=== PATIENT | female | born 1960 | race Caucasian/White ===

== ENCOUNTER 2025-01-02 20:49 | Emergency (ER) | payer MEDICARE, SELFPAY ==
--- OUTSIDE RECORDS SUMMARY | 2024-04-30 08:45 | XMS_ITS | Continuity of Care Document ---
Author Organization [facility] Address [address] [place] [address] Phone Care Team Providers Care Checker Cashier Name Role Phone Laly Noland MD Unavailable Unavailable Allergies, Adverse Reactions, Alerts Substance Reaction Status Criticality No Known Allergies Active No Inform ation Medications Medication Instructions Dosage Effective Dates (start - stop) Status Comments Maxitrol 3.5 mg/g-10,000 unit/g-0.1 % eye ointment apply to eyelids 2-3 times each day - No Longer Active Procedures Procedure Date POSTOP FOLLOW-UP VISIT Form Preparation VISUAL FIELD (Goldmann/Bleph) EYE PHOTOGRAPHY Advance Directives Directive Yes / No Effective Date File Name No Information Encounters Encounter Description Practice Location Reason(s) For Visit Diagnoses Date Provider Providers Copied on Encounter [facility], [address] [place] [address], [id number], tel:[phone] First Floor [facility] post op one week (chief complaint) Postoperative visit Ludin Ruffin. [address] [place] [address] [place] [address], [id number], [place]. tel:[phone] [facility], [address] [place] [address], [id number], tel:[phone] [facility] No Information Ludin Ruffin. [address] [place] [address] [place] [address], [id number], . tel:[phone] [facility], [address], [place], [id number], tel:[phone] First [facility] No Information Ludin Ruffin. [address] [place] [address], [id number], [place]. tel:[phone] [facility] [employer] [facility], [address], [place], [id number], tel:[phone] [facility] No Information Ludin Ruffin. [address], [id number], . tel:[phone] Family History Family Member Type Diagnosis Age At Onset No Information Payers Payer name Insurance type Covered republican ID Authoriza tion(s) No Information Social History Type Description Quantity Date Captured Comments Alcohol Use Details Unknown Caffeine Use Details Unknown Tobacco Use Status No Information Smoking Status No Information Sex Female Chief Complaint And Reason For Visit From encounter dated '04/30/2024 13:45'. post op one week (chief complaint). Description: The 63 year old patient presents for a post op oneweek bul bleph. Patient states she has irritation and itching around the eyes, especially near the incisions. Patient is using Maxitrol ointment three times a day. Reason For Referral Reason For Referral No Information History Of Present Illness Encounter Date Complaint History Of Prese nt Illness post op one week The 63 year old patient presents for a post op one week bul bleph. Patient states she has irritation and itching around the eyes, especially near the incisions. Patient is using Maxitrol ointment three times a day. Functional Status Date Functional Assessmen t No Information Instructions Date Instruction Additional Infor mation Impression/Plan Related to Posto perative visit Assessments Type Assessment Date assessment Postoperative visit impression Postoperative visit: Z48.89 Patient Care Teams Name Effective Dates (start - stop) Status Members No Information
--- OUTSIDE RECORDS SUMMARY | 2024-10-26 03:20 | XMS_ITS ---
Author Organization [facility] Address [address] [place] [id number] Care Team Providers Care [facility] Machine Name Role Phone Elisa Trinh Primary Care Provider Allergies Allergen (clinical drug ingredient) Drug/Non Drug Allergy documented on EMR Reaction Allergy Type Onset Date Status gabapentin Gabapentin ineffective Drug Allergy Act navarro Latex Latex Unknown Allergy Active metformin Metformin Unknown Drug Allergy Active REASON FOR VISIT 2 -3 week f/u, - Jess Reno LPN Medications Medication SIG (Take, Route, Frequency, Duration) Notes Start Date End Date Status Sulfamethoxazole-Trime thoprim 800-160 MG 1 tablet Orally twice a day; Duration: 7 days 10/11/2024 Active Hair Skin & Nails - as directed Orally Active Myrbetriq 50 MG 1 tablet Orally Once a day; Duration: 90 days 10/06/2024 Active CPAP mask, tubing, reservoir and associated supplies ; Duration: 90 days 10/06/2024 A ctive Carvedilol 3.125 MG 1 tablet with food Orally Twice a day; Duration: 90 days Active Senna 8.6 MG 1 tablet at bedtime as needed Orally Once a day Active Fexofenadine HCl 180 MG 1 tablet Swallow whole with water; do not take with fruit juices. Orally Once a day Active Lurasidone HCl 20 MG 1 tablet with food Oral Once a day; Duration: 30 days (latuda generic) Active traZODone HCl 100 MG 2 tab Oral daily bedtime; Duration: 90 days Active busPIRone HCl 15 MG 1 tablet Orally Twice a day; Duration: 90 days Active Omeprazole 40 MG 1 capsule 1/2 to 1 hour before morning meal Orally Once a day; Duration: 90 days Active DULoxetine HCl 60 MG 2 cap Orally Once a day; Duration: 90 days Active Famotidine 40 MG 1 tablet Oral Once a day; Duration: 90 days p.m. Active Simvastatin 20 MG 1 tablet in the evening Orally Once a day; Duration: 90 days Active C-PAP with associated supplies as directed DX: YOSEPH titrated to 14 Active Social History Tobacco Use: Social History Observation Description Date Details (start date - stop date) Former Smoker NA - NA Tobacco Control (Standard) Question Answer Notes Tobacco use: Former smoker How long has it been since you last smoked? Ivette ter than 10 years Encounters Encounter Location Date Provider Diagnosis [address] [place] [address] [address] [place] [place] [id number] 10/26/2024 Elisa Trinh Primary hypertension I10 ; Gastroesophageal reflux disease, unspecified whether esophagitis present K21.9 ; Insomnia, unspecified type G47.00 ; Overweight E66.3 ; Hyperlipidemia, unspecified hyperlipidemia type E78.5 ; OAB (overactive bladder) N32.81 ; Recurrent depression F33.9 ; Chronic pain syndrome G89.4 ; Bipolar 2 disorder F31.81 and YOSEPH on CPAP G47.33 Assessments Encounter Date Diagnosis (ICD Code) Assessment Notes Treatment Notes Treatment Clinical Notes Section Notes 10/26/2024 Primary hypertension (ICD-10 - I10) 10/26/2024 Gastroesophageal reflux disease, unspecified whether esophagitis present (ICD-10 - K21.9) 10/26/2024 Insomnia, unspecified type (ICD-10 - G47.00) 10/26/2024 Overweight (ICD-10 - E66.3) 10/26/2024 Hyperlipidemia, unspecified hyperlipidemia type (ICD-10 - E78.5) 10/26/2024 OAB (overactive bladder) (ICD-10 - N32.81) 10/26/2024 Recurrent depression (ICD-10 - F33.9) 10/26/2024 Chronic pain syndrome (ICD-10 - G89.4) 10/26/2024 Bipolar 2 disorder (ICD-10 - F31.81) 10/26/2024 YOSEPH on CPAP (ICD-10 - G47.33) Plan Of Treatment Next Appt Details Provider Name:Elisa ellis, 01/06/2025 09:40:00 AM, [address], [place], [id number], Progress Notes * Henrique DIAZB:1960 (64 yo F)Acc No.[id number]:10/26/2024 FaceToFace Patient: Eleni ESTES Provider: Michael Trinh MD Case Label: Date Of Injury: :1960 A ge:64 Y S ex:Female Date:10/26/2024 Address:[address] [place], [place] [id number] Patient's Default Facility:[address] [place] [address] Subjective: * Chief Complaints: * 1 . 2 -3 week f/u. 2. - Jess Reno LPN. * Medical History: N P June 2024, Hypertension, Hypercholesterolemia, GERD, on meds since gastric sleeve in 2014., Insomnia, OAB, has only been on Myrbetriq, Bipolar disorder, depression predominant, Anxiety, Bladder spasms, Migraines, last one in 2019., slipped disc, chronic low back. Pt reports long hx of hydrocodone with B radiculopathy since 1979 with a work accident, Insomnia, chronic abd pain after gastric sleeve, considering other surgery. Dicyclomine not helpful, d/c, Perennial allergic rhinitis. * Carpet Layer History: M enstruation: L MP hysterectomy. * OB History: G P G ravida: 2 , P [place]: 2 , A bortion Induced 0 , F ull Term 2 , A bortion Spontaneous 0 , P remature 0 , E ctopics 0 , M ultiple Births 0 , L iving 2 . * Surgical History: e ye lift 04/23/24, gastric bypass, sleeve 2014, breast reduction 2002, cholecystectomy 1985, B tubal ligation 1983, total hyst 1997, pin to left arm 1998, tonsilectomy , removal of pin left arm 1998. * Hospitalization/Major Diagno stic Procedure: i nfection (unknown origin) 2006, 6 ribs fractured 2004. * Family History: F ather: unknown hx. M other: , diagnosed with Diabetes mellitus without mention of complication, type II or unspecified type, not stated as uncontrolled, Hypertension, unspecified essential, Unspecified heart disease. 2 brother(s) . 2 daughter(s) . . * Social History: T obacco Use: T obacco Control (Standard) T obacco use: F ormer smoker, H ow long has it been since you last smoked? G reater than 10 years. A dult Health Maintenance-: T etanus t etanus within the last 5 years Y es 07/06/2024. * Medications: T aking Sulfamethoxazole-Trimethoprim 800-160 MG Tablet 1 tablet Orally twice a day , Taking CPAP mask, tubing, reservoir and associated supplies , Taking Myrbetriq 50 MG Tablet Extended Release 24 Hour 1 tablet Orally Once a day , Taking Carvedilol 3.125 MG Tablet 1 tablet with food Orally Twice a day , Taking Simvastatin 20 MG Tablet 1 tablet in the evening Orally Once a day , Taking Omeprazole 40 MG Capsule Delayed Release 1 capsule 1/2 to 1 hour before morning meal Orally Once a day , Taking Famotidine 40 MG Tablet 1 tablet Oral Once a day , Notes to Pharmacist: p.m., Taking DULoxetine HCl 60 MG Capsule Delayed Release Particles 2 cap Orally Once a day , Taking C-PAP with associated supplies as directed DX: YOSEPH , Notes to Pharmacist: titrated to 14, Taking Lurasidone HCl 20 MG Tablet 1 tablet with food Oral Once a day , Notes to Pharmacist: (latuda generic), Taking busPIRone HCl 15 MG Tablet 1 tablet Orally Twice a day , Taking traZODone HCl 100 MG Tablet 2 tab Oral daily bedtime , Taking Fexofenadine HCl 180 MG Tablet 1 tablet Swallow whole with water; do not take with fruit juices. Orally Once a day , Taking Senna 8.6 MG Tablet 1 tablet at bedtime as needed Orally Once a day , Taking Hair Skin & Nails - Tablet as directed Orally * Allergies: M etformin: Contraindication, Latex, Gabapentin: ineffective - Side Effects. Objective: * Vitals: Assessment: * Assessment: 1. P rimary hypertension - I10 (Primary) 2 . G astroesophageal reflux disease, unspecified whether esophagitis present - K21.9 3 . I nsomnia, unspecified type - G47.00 4 . O verweight - E66.3 5 . H yperlipidemia, unspecified hyperlipidemia type - E78.5 6 . O AB (overactive bladder) - N32.81? 7. R ecurrent depression - F33.9 8 . C hronic pain syndrome - G89.4 9 . B ipolar 2 disorder - F31.81 1 0. O SA on CPAP - G47.33 Plan: * Treatment: Care Plan: * Problems: * Billing Information: * Visit Code: * Procedure Codes: * Electronic signature of Yana Trinh MD on 01/02/2025 at 08:55 PM CDT Sign off status: Pending * Provider: Michael Trinh MD Date: 0 10/26/2024 Generated for Beba cadena/Robles/Kalasmitting on: 1 08:55 PM CDT
--- OUTSIDE RECORDS SUMMARY | 2025-01-02 20:55 | XMS_ITS | Patient Health Record ---
Author Organization [facility] Address [address] [place] [id number] Care Team Providers Care Relocation Coordinator Name Role Phone Elisa Trinh Primary Care Provider Allergies Allergen (clinical drug ingredient) Drug/Non Drug Allergy documented on EMR Reaction Allergy Type Onset Date Status gabapentin Gabapentin ineffective Drug Allergy Act navarro Latex Latex Unknown Allergy Active metformin Metformin Unknown Drug Allergy Active Results Component Value Reference Range Notes Urinalysis, w/ reflex to cul [place] Reviewed date:11/03/2024 08:37:27 AM Interpretation:Normal Performing Lab: Notes/Report: [email or web address] Testing performed at: [facility], [address] [place] [address], [phone], Boiler Shop Mechanic: Arturo Rojas MD [facility] Collection Date/Time: [id number] [facility] Results Received Date/Time: [id number] [facility] Reported Date/Time: [id number] Testing performed by reference lab. COLOR YELLOW YELLOW APPEARANCE CLEAR CLEAR SPECIFIC GRAVITY 1.012 1.001-1.035 PH 5.5 5.0-8.0 GLUCOSE NEGATIVE NEGATIVE BILIRUBIN NEGATIVE NEGATIVE KETONES NEGATIVE NEGATIVE OCCULT BLOOD NEGATIVE NEGATIVE PROTEIN NEGATIVE NEGATIVE NITRITE NEGATIVE NEGATIVE LEUKOCYTE ESTERASE TRACE NEGATIVE WBC 0-5 < OR = 5 /HPF RBC NONE SEEN < OR = 2 /HPF SQUAMOUS EPITHELIAL CELLS 0-5 < OR = 5 /HPF BACTERIA NONE SEEN NONE SEEN /HPF HYALINE CAST NONE SEEN NONE SEEN /LPF NOTE SEE NOTE This urine was analyzed for the presence of WBC, RBC, bacteria, casts, and other formed elements. Only those elements seen were reported. REFLEXIVE URINE CULTURE SEE NOTE CULT URE INDICATED - RESULTS TO FOLLOW CULTURE, URINE, ROUTINE SEE NOTE CULTURE, URINE, ROUTINE Micro Number: [id number] Test Status: Final Specimen Source: Urine Specimen Quality: Inadequate Result: Test not performed. An empty specimen container was received. Thyroid Panel with TSH Reviewed date:07/07/2024 03:48:14 PM Interpretation:Normal Performing Lab: Notes/Report: [facility] Testing performed at: [facility], [address] [place] [address], [phone], Boiler Shop Mechanic: Arturo Rojas MD [facility] Collection Date/Time: [id number] [facility] Results Received Date/Time: [id number] [facility] Reported Date/Time: [id number] Testing performed by reference lab. T3 UPTAKE 28 22-35 % T4 (THYROXINE), TOTAL 5.7 5.1-11.9 mcg/dL FREE T4 INDEX (T7) 1.6 1.4-3.8 TSH 1.45 0.40-4.50 mIU/L CBC, Diff, Automated Reviewed date:07/07/2024 03:48:14 PM Interpretation:Normal Performing Lab: Notes/Report: Testing performed at the [address] [place] [address] location. [place] ONLY Reviewed date:07/07/2024 03:48:49 PM Interpretation:Normal Performing Lab: Notes/Report: Lipid Panel ([place] Only) Reviewed date:07/07/2024 03:48:14 PM Interpretation:Normal Performing Lab: Notes/Report: Urinalysis, w/ reflex to cul ture, [facility] Reviewed date:10/11/2024 09:44:06 AM Interpretation:Abnormal Performing Lab: Notes/Report: Testing performed by reference lab. [facility] Reported Date/Time: [id number] [facility] Results Received Date/Time: [id number] [facility] Collection Date/Time: [id number] Testing performed at: [facility], [address] [place] [address], [phone], Boiler Shop Mechanic: Arturo Rojas MD [facility] COLOR DARK YELLOW YELLOW APPEARANCE TURBID CLEAR SPECIFIC GRAVITY 1.023 1.001-1.035 PH < OR = 5.0 5.0-8.0 GLUCOSE NEGATIVE NEGATIVE BILIRUBIN NEGATIVE NEGATIVE KETONES NEGATIVE NEGATIVE OCCULT BLOOD 2+ NEGATIVE PROTEIN 2+ NEGATIVE NITRITE POSITIVE NEGATIVE LEUKOCYTE ESTERASE 2+ NEGATIVE WBC > OR = 60 < OR = 5 /HPF RBC > OR = 60 < OR = 2 /HPF SQUAMOUS EPITHELIAL CELLS 6-10 < OR = 5 /HPF BACTERIA MANY NONE SEEN /HPF CALCIUM OXALATE CRYSTALS MODERATE NONE OR FEW /HPF HYALINE CAST 0-5 NONE SEEN /LPF NOTE SEE NOTE This urine was analyzed for the presence of WBC, RBC, bacteria, casts, and other formed elements. Only those elements seen were reported. REFLEXIVE URINE CULTURE SEE NOTE CULT URE INDICATED - RESULTS TO FOLLOW CULTURE, URINE, ROUTINE SEE NOTE CULTURE, URINE, ROUTINE Micro Number: [id number] Test Status: Final Specimen Source: Urine Specimen Quality: Adequate Result: Greater than 100,000 CFU/mL of Escherichia coli E.coli INT ASHLEY AMOX/CLAVULANATE S <=2 AMP/SULBACTAM S <=2 CEFAZOLIN NR <=1 2 CEFEPIME S <=0.12 CEFTAZIDIME S <=0.5 CEFTRIAXONE S <=0.25 CIPROFLOXACIN S <=0.06 GENTAMICIN S <=1 IMIPENEM S <=0.25 LEVOFLOXACIN S <=0.12 MEROPENEM S <=0.25 NITROFURANTOIN S <=16 PIP/TAZOBACTAM S <=4 TRIMETHOPRIM/SULFA S <=20 S = Susceptible I = Intermediate R = Resistant NS = Not susceptible SDD = Susceptible Dose Dependent * = Not Tested NR = Not Reported NN = See Therapy Comments THERAPY COMMENTS Note 1: For infections other than uncomplicated UTI caused by E. coli, K. pneumoniae or P. mirabilis: Cefazolin is resistant if ASHLEY > or = 8 mcg/mL. (Distinguishing susceptible versus intermediate for isolates with ASHLEY < or = 4 mcg/mL requires additional testing.) Note 2: For uncomplicated UTI caused by E. coli, K. pneumoniae or P. mirabilis: Cefazolin is susceptible if ASHLEY <32 mcg/mL and predicts susceptible to the oral agents cefaclor, cefdinir, cefpodoxime, cefprozil, cefuroxime, cephalexin and loracarbef. CBC, Diff, Automated Reviewed date:10/07/2024 04:38:22 PM Interpretation:Normal Performing Lab: Notes/Report: Testing performed at the [address] [place] [address] location. [facility] ONLY Reviewed date:10/11/2024 09:44:49 AM Interpretation:Normal Performing Lab: Notes/Report: Reason For Referral Reason 08/18 faxed for lisa banks pt reports chronic back pain since 1979, new patient here, no records available yet Referral form attached at back of fax Diagnosis 1 Chronic pain syndrom e (G89.4) Referral Organization [address] [place] [address] are [facility] Referring Provider First Name Elisa Referring Provider Last Name Ziggy Referring Provider [facility] nomi Referred Provider Interventional Pain Management, Referral Lines Referred Provider Specialty Pain Managem ent General Notes Elisa Trinh 07/06/2024 02:39:19 PM >[place] L[place] 07/07/2024 03:21:27 PM >referral faxed. will monitor for appointment.Ilia Lorna 07/12/2024 09:44:12 AM >Received notification from Interventional Pain Mgtmt. Patient is scheduled 08/12/2024 @ 9am. Patient has been notified by Interventional Pain Mgmt.Shayan Wendy 08/18/2024 11:20:16 AM >Faxed for Shayan crespo Wendy 08/25/2024 04:40:16 PM >notes received Referral Priority Routine Referral Appointment Date 08/12/2024 Reason 09/17 records req uested bipolar, anxiety, panic attacks For [place] [facility] Diagnosis 1 Bipolar 2 disorder ( F31.81) Diagnosis 2 Anxiety disorder wit h panic attacks (F41.9) Diagnosis 3 Recurrent depression (F33.9) Referral Organization [address] [place] [address] are [facility] Referring Provider First Name Elisa Referring Provider Last Name Ziggy Referring Provider [facility] ctice Referred Provider [facility] Referred Provider Specialty Mental Healt h General Notes Elisa Trinh 07/06/2024 02:41:59 PM >in house medication management if this insurance is accepted. If not, closest available., Christine Morillo 07/07/2024 03:26:21 PM >referral faxed. Also sent to [place] office, as most often [place] office can not receive faxes (labelled as [place] Patient), Christine Morillo 07/23/2024 03:06:18 PM > faxed for update on referral status, Christine Morillo 07/27/2024 11:30:58 AM >Per [employer], Intake completed . Note to be requested through [employer]. Patient will have to signed records release., Sia Downey 08/23/2024 04:26:18 PM >I do not see a release of information at this time, Christine Morillo 09/07/2024 03:07:29 PM >Spoke with patient. She will come in to clinic and sign a release of information for us to request the 07/19/2024 visit note from [facility]., Christine Morillo 09/17/2024 03:50:25 PM >Patient filled out release. Records requested through [employer]. Referral Priority Routine Referral Appointment Date 07/19/2024 Medications Medication SIG (Take, Route, Frequency, Duration) Notes Start Date End Date Status Myrbetriq 50 MG 1 tablet Orally Once a day; Duration: 90 days 10/06/2024 Active traZODone HCl 100 MG 2 tab Oral daily bedtime; Duration: 90 days Active Omeprazole 40 MG 1 capsule 1/2 to 1 hour before morning meal Orally Once a day; Duration: 90 days Active C-PAP with associated supplies as directed DX: YOSEPH titrated to 14 Active Famotidine 40 MG 1 tablet Oral Once a day; Duration: 90 days p.m. Active Carvedilol 3.125 MG 1 tablet with food Orally Twice a day; Duration: 90 days Active Hair Skin & Nails - as directed Orally Active Simvastatin 20 MG 1 tablet in the evening Orally Once a day; Duration: 90 days Active CPAP mask, tubing, reservoir and associated supplies ; Duration: 90 days 10/06/2024 A ctive Fexofenadine HCl 180 MG 1 tablet Swallow whole with water; do not take with fruit juices. Orally Once a day Active Senna 8.6 MG 1 tablet at bedtime as needed Orally Once a day Active busPIRone HCl 15 MG 1 tablet Orally Twice a day; Duration: 90 days Active DULoxetine HCl 60 MG 2 cap Orally Once a day; Duration: 90 days Active Lurasidone HCl 20 MG 1 tablet with food Oral Once a day; Duration: 30 days (latuda generic) Active Immunizations Vaccine Route Administration Date Status Comme nts Zostavax Unknown 11/09/2019 Administered Tdap 11-100 Yrs old-Private Stock Unknown 11/21/2014 Administered Tdap 11-100 Yrs old-Private Stock IM Intramuscular 07/06/2024 Administered pt tolerated without adverse reaction Pneumococcal 13-Private Stock Unknown 05/01/2015 Administered Pneumococcal 13-Private Stock Unknown 07/19/2019 Administered Pneumococcal (Pneumovax 23) Unknown 02/08/2013 Administered Influenza Unknown 12/15/2023 Administered Hepatitis A-Adult Unknown 11/23/2020 Administered Hepatitis A-Adult Unknown 05/30/2021 Administered Hep B adult Unknown 02/27/2015 Administered Hep B adult Unknown 04/03/2017 Administered Hep B adult Unknown 11/23/2020 Administered Hep B adult Unknown 12/25/2020 Administered Hep B adult Unknown 07/26/2021 Administered Social History Tobacco Use: Social History Observation Description Date Details (start date - stop date) Former Smoker NA - NA Diabetic Retinal Eye Exam Question Answer Notes Date of exam 10/08/2023 Tobacco Control (Standard) Question Answer Notes Tobacco use: Former smoker How long has it been since you last smoked? Grea ter than 10 years Problems Problem Type SNOMED Code ICD Code Onset Dates Problem Status W/U Status Risk Notes Problem Overweight (668115543) Overweight (E66.3) Active confirmed Problem Bipolar 2 disorder (34055885) Bipolar 2 disorder (F31.81) Active confirmed Problem Chronic pain (31368170) Other chronic pain (G89.29) Active confirmed Problem Chronic pain syndrome (540045619) Chronic pain syndrome (G89.4) Active confirmed Problem Hyperlipidaemia (87033952) Hyperlipidemia, unspecified hyperlipidemia type (E78.5) Active confirmed Problem Insomnia (304893426) Insomnia, unspecified type (G47.00) Active confirmed Problem Overactive urinary bladder (disorder) (183953066) OAB (overactive bladder) (N32.81) Active confirmed Problem Primary hypertension (97264921) Primary hypertension (I10) Active confirmed Problem Type II diabetes mellitus without complication (112967223) Type 2 diabetes mellitus without complication, without long-term current use of insulin (E11.9) Active confirmed Not reported by patient, found history in old records Problem Gastroesophageal reflux disease (247866953) Gastroesophageal reflux disease, unspecified whether esophagitis present (K21.9) Active confirmed Problem Recurrent depression (499338265) Recurrent depression (F33.9) Active confirmed Problem Obstructive sleep apnea syndrome (72201791) YOSEPH on CPAP (G47.33) Active confirmed Vital Signs Heart Rate 67 /min 11/01/2024 Temperature 96.6 degrees Fahrenheit 11/01/2024 Respiratory Rate 18 /min 11/01/2024 Height-cm 166.37 cm 11/01/2024 Oximetry 98 11/01/2024 Blood pressure diastolic 86 mm Hg 11/01/2024 Weight-kg 86.91 Kg 11/01/2024 Height 65.5 in 11/01/2024 Blood pressure systolic 124 mm Hg 11/01/2024 Weight 191.6 lbs 11/01/2024 BMI 31.4 kg/m2 11/01/2024 Encounters Encounter Location Date Provider Diagnosis [facility] [address] [place], [place] [id number] 07/06/2024 Elisa Trinh Primary hypertension I10 ; Hyperlipidemia, unspecified hyperlipidemia type E78.5 ; Gastroesophageal reflux disease, unspecified whether esophagitis present K21.9 ; OAB (overactive bladder) N32.81 ; Insomnia, unspecified type G47.00 ; Recurrent depression F33.9 ; Chronic pain syndrome G89.4 ; Bipolar 2 disorder F31.81 ; Anxiety disorder with panic attacks F41.9 ; Dietary counseling Z71.3 ; Overweight E66.3 and Encounter for administration of vaccine Z23 [facility] [address] [place], [place] [id number] 10/06/2024 Elisa Trinh Primary hypertension I10 ; Gastroesophageal reflux disease, unspecified whether esophagitis present K21.9 ; Insomnia, unspecified type G47.00 ; Overweight E66.3 ; Hyperlipidemia, unspecified hyperlipidemia type E78.5 ; OAB (overactive bladder) N32.81 ; YOSEPH on CPAP G47.33 and Acute contact dermatitis L25.9 [facility] [address] [place], [place] [id number] 10/07/2024 Elisa Trinh Gross hematuria R31. 0 and Acute cystitis with hematuria N30.01 [facility] [address] [place], [place] [id number] 11/01/2024 Elisa Trinh History of UTI Z87.4 40 ; History of hematuria Z87.448 and Bipolar 2 disorder F31.81 [facility] [address] [place], [place] [id number] 07/26/2024 Elisa Trinh Bipolar 2 disorder F31.81 [facility] [address] [place], [place] [id number] 08/23/2024 Elisa Trinh [address] [place], [place] [address] [address] [place] [address], [place] [address] 08/23/2024 Elisa Trinh [facility] [address] [place], [place] [id number] 10/06/2024 Elisa Trinh [facility] [address] [place], [place] [id number] 11/03/2024 Elisa Trinh [facility] [address] [place], [place] [id number] 11/23/2024 Elisa Trinh Bipolar 2 disorder F31.81 Assessments Encounter Date Diagnosis (ICD Code) Assessment Notes Treatment Notes Treatment Clinical Notes Section Notes 07/06/2024 Hyperlipidemia, unspecified hyperlipidemia type (ICD-10 - E78.5) 07/06/2024 Primary hypertension (ICD-10 - I10) It's normal for blood pressure to go up and down throughout the day. But if it stays up, you have high blood pressure. Another name for high blood pressure is hypertension. For diagnosis, the top number may be 130 to 140 or higher. The bottom number may be 80 to 90 or higher. Despite what a lot of people think, high blood pressure usually doesn't cause headaches or make you feel dizzy or lightheaded. It usually has no symptoms. But it does increase your risk of stroke, heart attack, and other problems. You and your doctor will talk about your risks of these problems based on your blood pressure. Your doctor will give you a goal for your blood pressure. Your goal will be based on your health and your age. Lifestyle changes, such as eating healthy and being active, are always important to help lower blood pressure. You might also take medicine to reach your blood pressure goal. Follow-up care is a kelly part of your treatment and safety. Be sure to make and go to all appointments, and call your doctor if you are having problems. It's also a good idea to know your test results and keep a list of the medicines you take. How can you care for yourself at home? Medical treatment If you stop taking your medicine, your blood pressure will go back up. You may take one or more types of medicine to lower your blood pressure. Be safe with medicines. Take your medicine exactly as prescribed. Call your doctor if you think you are having a problem with your medicine. Talk to your doctor before you start taking aspirin every day. Aspirin can help certain people lower their risk of a heart attack or stroke. But taking aspirin isn't right for everyone, because it can cause serious bleeding. See your doctor regularly. You may need to see the doctor more often at first or until your blood pressure comes down. If you are taking blood pressure medicine, talk to your doctor before you take decongestants or anti-inflammatory medicine, such as ibuprofen. Some of these medicines can raise blood pressure. Learn how to check your blood pressure at home. Lifestyle changes Stay at a healthy weight. This is especially important if you put on weight around the waist. Losing even 10 pounds can help you lower your blood pressure. If your doctor recommends it, get more exercise. Walking is a good choice. Bit by bit, increase the amount you walk every day. Try for at least 30 minutes on most days of the week. You also may want to swim, bike, or do other activities. Avoid or limit alcohol. Talk to your doctor about whether you can drink any alcohol. Try to limit how much sodium you eat to less than 2,300 milligrams (mg) a day. Your doctor may ask you to try to eat less than 1,500 mg a day. Eat plenty of fruits (such as bananas and oranges), vegetables, legumes, whole grains, and low-fat dairy products. Lower the amount of saturated fat in your diet. Saturated fat is found in animal products such as milk, cheese, and meat. Limiting these foods may help you lose weight and also lower your risk for heart disease. Do not smoke. Smoking increases your risk for heart attack and stroke. If you need help quitting, talk to your doctor about stop-smoking programs and medicines. These can increase your chances of quitting for good. When should you call for help? Call 911 anytime you think you may need emergency care. This may mean having symptoms that suggest that your blood pressure is causing a serious heart or blood vessel problem. Your blood pressure may be over 180/120. For example, call 911 if: You have symptoms of a heart attack. These may include: Chest pain or pressure, or a strange feeling in the chest. Sweating. Shortness of breath. Nausea or vomiting. Pain, pressure, or a strange feeling in the back, neck, jaw, or upper belly or in one or both shoulders or arms. Lightheadedness or sudden weakness. A fast or irregular heartbeat. You have symptoms of a stroke. These may include: Sudden numbness, tingling, weakness, or loss of movement in your face, arm, or leg, especially on only one side of your body. Sudden vision changes. Sudden trouble speaking. Sudden confusion or trouble understanding simple statements. Sudden problems with walking or balance. A sudden, severe headache that is different from past headaches. You have severe back or belly pain. Do not wait until your blood pressure comes down on its own. Get help right away. Call your doctor now or seek immediate care if: Your blood pressure is much higher than normal (such as 180/120 or higher), but you don't have symptoms. You think high blood pressure is causing symptoms, such as: Severe headache. Blurry vision. Watch closely for changes in your health, and be sure to contact your doctor if: Your blood pressure measures higher than your doctor recommends at least 2 times. That means the top number is higher or the bottom number is higher, or both. You think you may be having side effects from your blood pressure medicine. 07/26/2024 Bipolar 2 disorder (ICD-10 - F31.81) 10/07/2024 Acute cystitis with hematuria (ICD-10 - N30.01) 10/07/2024 Gross hematuria (ICD-10 - R31.0) Blood in the Urine: Care Instructions material was printed, Cystoscopy: What to Expect at Home material was printed. Blood in the urine, or hematuria, may make the urine look red, brown, or pink. There may be blood every time you urinate or just from time to time. You cannot always see blood in the urine, but it will show up in a urine test. Blood in the urine may be serious. It should always be checked by a doctor. Your doctor may recommend more tests, including an X-ray, a CT scan, or a cystoscopy (which lets a doctor look inside the urethra and bladder). Blood in the urine can be a sign of another problem. Common causes are bladder infections and kidney stones. An injury to your groin or your genital area can also cause bleeding in the urinary tract. Very hard exercise-such as running a marathon-can cause blood in the urine. Blood in the urine can also be a sign of kidney disease or cancer in the bladder or kidney. Many cases of blood in the urine are caused by a harmless condition that runs in families. This is called benign familial hematuria. It does not need any treatment. Sometimes your urine may look red or brown even though it does not contain blood. For example, not getting enough fluids (dehydration), taking certain medicines, or having a liver problem can change the color of your urine. Eating foods such as beets, rhubarb, or blackberries or foods with red food coloring can make your urine look red or pink. Follow-up care is a kelly part of your treatment and safety. Be sure to make and go to all appointments, and call your doctor if you are having problems. It's also a good idea to know your test results and keep a list of the medicines you take.Call your doctor now or seek immediate medical care if: You have symptoms of a urinary infection. For example:You have pus in your urine.You have pain in your back just below your rib cage. This is called flank pain.You have a fever, chills, or body aches.It hurts to urinate.You have groin or belly pain.You have more blood in your urine.Watch closely for changes in your health, and be sure to contact your doctor if: You have new urination problems.You do not get better as expected. Patient presented with new-onset visible blood in urine, described as orange and pink, with no prior history. No associated burning, abdominal pain, or changes in stool. Urine sample collected for laboratory confirmation. CBC reviewed and showed no anemia. Further evaluation pending lab confirmation. - Ordered urinalysis with microscopy to confirm presence of blood in urine. - Ordered comprehensive metabolic panel (CMP). - Ordered complete blood count (CBC) to assess for anemia. - Referral to Urology pending confirmation of hematuria. - Planned CT scan of the abdomen and pelvis pending insurance approval and lab confirmation. - Planned cystoscopy pending urology evaluation. 10/06/2024 Primary hypertension (ICD-10 - I10) It's normal for blood pressure to go up and down throughout the day. But if it stays up, you have high blood pressure. Another name for high blood pressure is hypertension. For diagnosis, the top number may be 130 to 140 or higher. The bottom number may be 80 to 90 or higher. Despite what a lot of people think, high blood pressure usually doesn't cause headaches or make you feel dizzy or lightheaded. It usually has no symptoms. But it does increase your risk of stroke, heart attack, and other problems. You and your doctor will talk about your risks of these problems based on your blood pressure. Your doctor will give you a goal for your blood pressure. Your goal will be based on your health and your age. Lifestyle changes, such as eating healthy and being active, are always important to help lower blood pressure. You might also take medicine to reach your blood pressure goal. Follow-up care is a kelly part of your treatment and safety. Be sure to make and go to all appointments, and call your doctor if you are having problems. It's also a good idea to know your test results and keep a list of the medicines you take. How can you care for yourself at home? Medical treatment If you stop taking your medicine, your blood pressure will go back up. You may take one or more types of medicine to lower your blood pressure. Be safe with medicines. Take your medicine exactly as prescribed. Call your doctor if you think you are having a problem with your medicine. Talk to your doctor before you start taking aspirin every day. Aspirin can help certain people lower their risk of a heart attack or stroke. But taking aspirin isn't right for everyone, because it can cause serious bleeding. See your doctor regularly. You may need to see the doctor more often at first or until your blood pressure comes down. If you are taking blood pressure medicine, talk to your doctor before you take decongestants or anti-inflammatory medicine, such as ibuprofen. Some of these medicines can raise blood pressure. Learn how to check your blood pressure at home. Lifestyle changes Stay at a healthy weight. This is especially important if you put on weight around the waist. Losing even 10 pounds can help you lower your blood pressure. If your doctor recommends it, get more exercise. Walking is a good choice. Bit by bit, increase the amount you walk every day. Try for at least 30 minutes on most days of the week. You also may want to swim, bike, or do other activities. Avoid or limit alcohol. Talk to your doctor about whether you can drink any alcohol. Try to limit how much sodium you eat to less than 2,300 milligrams (mg) a day. Your doctor may ask you to try to eat less than 1,500 mg a day. Eat plenty of fruits (such as bananas and oranges), vegetables, legumes, whole grains, and low-fat dairy products. Lower the amount of saturated fat in your diet. Saturated fat is found in animal products such as milk, cheese, and meat. Limiting these foods may help you lose weight and also lower your risk for heart disease. Do not smoke. Smoking increases your risk for heart attack and stroke. If you need help quitting, talk to your doctor about stop-smoking programs and medicines. These can increase your chances of quitting for good. When should you call for help? Call 911 anytime you think you may need emergency care. This may mean having symptoms that suggest that your blood pressure is causing a serious heart or blood vessel problem. Your blood pressure may be over 180/120. For example, call 911 if: You have symptoms of a heart attack. These may include: Chest pain or pressure, or a strange feeling in the chest. Sweating. Shortness of breath. Nausea or vomiting. Pain, pressure, or a strange feeling in the back, neck, jaw, or upper belly or in one or both shoulders or arms. Lightheadedness or sudden weakness. A fast or irregular heartbeat. You have symptoms of a stroke. These may include: Sudden numbness, tingling, weakness, or loss of movement in your face, arm, or leg, especially on only one side of your body. Sudden vision changes. Sudden trouble speaking. Sudden confusion or trouble understanding simple statements. Sudden problems with walking or balance. A sudden, severe headache that is different from past headaches. You have severe back or belly pain. Do not wait until your blood pressure comes down on its own. Get help right away. Call your doctor now or seek immediate care if: Your blood pressure is much higher than normal (such as 180/120 or higher), but you don't have symptoms. You think high blood pressure is causing symptoms, such as: Severe headache. Blurry vision. Watch closely for changes in your health, and be sure to contact your doctor if: Your blood pressure measures higher than your doctor recommends at least 2 times. That means the top number is higher or the bottom number is higher, or both. You think you may be having side effects from your blood pressure medicine. 10/06/2024 Gastroesophageal reflux disease, unspecified whether esophagitis present (ICD-10 - K21.9) Change your eating habits. -It's best to eat several small meals instead of two or three large meals. -After you eat, wait 2 to 3 hours before you lie down. -Chocolate, mint, and alcohol can make GERD worse. -Spicy foods, foods that have a lot of acid (like tomatoes and oranges), and coffee can make GERD symptoms worse in some people. If your symptoms are worse after you eat a certain food, you may want to stop eating that food to see if your symptoms get better. -Do not smoke or chew tobacco. Smoking can make GERD worse. If you need help quitting, talk to your doctor about stop-smoking programs and medicines. These can increase your chances of quitting for good. -If you have GERD symptoms at night, raise the head of your bed 6 to 8 inches by putting the frame on blocks or placing a foam wedge under the head of your mattress. (Adding extra pillows does not work.) -Do not wear tight clothing around your middle. -Lose weight if you need to. Losing just 5 to 10 pounds can help. 11/01/2024 History of UTI (ICD-10 - Z87.440) 11/01/2024 History of hematuria (ICD-10 - Z87.448) 11/23/2024 Bipolar 2 disorder (ICD-10 - F31.81) 07/06/2024 Gastroesophageal reflux disease, unspecified whether esophagitis present (ICD-10 - K21.9) Change your eating habits. -It's best to eat several small meals instead of two or three large meals. -After you eat, wait 2 to 3 hours before you lie down. -Chocolate, mint, and alcohol can make GERD worse. -Spicy foods, foods that have a lot of acid (like tomatoes and oranges), and coffee can make GERD symptoms worse in some people. If your symptoms are worse after you eat a certain food, you may want to stop eating that food to see if your symptoms get better. -Do not smoke or chew tobacco. Smoking can make GERD worse. If you need help quitting, talk to your doctor about stop-smoking programs and medicines. These can increase your chances of quitting for good. -If you have GERD symptoms at night, raise the head of your bed 6 to 8 inches by putting the frame on blocks or placing a foam wedge under the head of your mattress. (Adding extra pillows does not work.) -Do not wear tight clothing around your middle. -Lose weight if you need to. Losing just 5 to 10 pounds can help. 10/06/2024 Insomnia, unspecified type (ICD-10 - G47.00) What to avoid *Do not have drinks with caffeine, such as coffee or black tea, for 8 hours before bed. *Do not smoke or use other types of tobacco near bedtime. Nicotine is a stimulant and can keep you awake. *Avoid drinking alcohol late in the evening, because it can cause you to wake in the middle of the night. *Do not eat a big meal close to bedtime. If you are hungry, eat a light snack. *Do not drink a lot of water close to bedtime, because the need to urinate may wake you up during the night. *Do not read or watch TV in bed. Use the bed only for sleeping and sexual activity. What to try *Go to bed at the same time every night, and wake up at the same time every morning. Do not take naps during the day. *Keep your bedroom quiet, dark, and cool. *Sleep on a comfortable pillow and mattress. *If watching the clock makes you anxious, turn it facing away from you so you cannot see the time. *If you worry when you lie down, start a worry book. Well before bedtime, write down your worries, and then set the book and your concerns aside. *Try meditation or other relaxation techniques before you go to bed. *If you cannot fall asleep, get up and go to another room until you feel sleepy. Do something relaxing. Repeat your bedtime routine before you go to bed again. *Make your house quiet and calm about an hour before bedtime. Turn down the lights, turn off the TV, log off the computer, and turn down the volume on music. This can help you relax after a busy day. When should you call for help? Watch closely for changes in your health, and be sure to contact your doctor if: *Your efforts to improve your sleep do not work. *Your insomnia gets worse. *You have been feeling down, depressed, or hopeless or have lost interest in things that you usually enjoy. 11/01/2024 Bipolar 2 disorder (ICD-10 - F31.81) If you have a large task to do, break it up into smaller steps you can handle, and just do what you can. You may want to put off important decisions until your depression has lifted. If you have plans that will have a major impact on your life, such as marriage, divorce, or a job change, try to wait a bit. Talk it over with friends and loved ones who can help you look at the overall picture first. Reaching out to people for help is important. Do not isolate yourself. Let your family and friends help you. Find someone you can trust and confide in, and talk to that person. Be patient, and be kind to yourself. Remember that depression is not your fault and is not something you can overcome with willpower alone. Treatment is important for depression, just like for any other illness. Feeling better takes time, and your mood will improve little by little. Stay active Stay busy and get outside. Take a walk, or try some other light exercise. Talk with your doctor about an exercise program. Exercise can help with mild depression. Go to a movie or concert. Take part in a hoahaoism activity or other social gathering. Go to a ball game. Ask a friend to have dinner with you. Take care of yourself Eat a balanced diet with plenty of fresh fruits and vegetables, whole grains, and lean protein. If you have lost your appetite, eat small snacks rather than large meals. Avoid using illegal drugs or marijuana and drinking alcohol. Do not take medicines that have not been prescribed for you. They may interfere with medicines you may be taking for depression, or they may make your depression worse. Take your medicines exactly as they are prescribed. You may start to feel better within 1 to 3 weeks of taking antidepressant medicine. But it can take as many as 6 to 8 weeks to see more improvement. If you have questions or concerns about your medicines, or if you do not notice any improvement by 3 weeks, talk to your doctor. Continue to take your medicine after your symptoms improve. Taking your medicine for at least 6 months after you feel better can help keep you from getting depressed again. If this isn't the first time you have been depressed, your doctor may recommend you to take medicine even longer. If you have any side effects from your medicine, tell your doctor. Many side effects are mild and will go away on their own after you have been taking the medicine for a few weeks. Some may last longer. Talk to your doctor if side effects are bothering you too much. You might be able to try a different medicine. Continue counseling. It may help prevent depression from returning, especially if you've had multiple episodes of depression. Talk with your counselor if you are having a hard time attending your sessions or you think the sessions aren't working. Don't just stop going. Get enough sleep. Talk to your doctor if you are having problems sleeping. Avoid sleeping pills unless they are prescribed by the doctor treating your depression. Sleeping pills may make you groggy during the day, and they may interact with other medicine you are taking. If you have any other illnesses, such as diabetes, heart disease, or high blood pressure, make sure to continue with your treatment. Tell your doctor about all of the medicines you take, including those with or without a prescription. If you or someone you know talks about suicide, self-harm, or feeling hopeless, get help right away. Call the National Suicide Prevention Lifeline at 1-800-273-talk ( ) or text HOME to 640477 to access the Crisis Text Line. Consider saving these numbers in your phone. Call 924 anytime you think you may need emergency care. For example, call if: You feel like hurting yourself or someone else. Someone you know has depression and is about to attempt or is attempting suicide. Call your doctor now or seek immediate medical care if: You feel like hurting yourself or someone else. Someone you know has depression and is about to attempt or is attempting suicide. Call your doctor now or seek immediate medical care if: You hear voices. Someone you know has depression and: Starts to give away his or her possessions. Uses illegal drugs or drinks alcohol heavily. Talks or writes about , including writing suicide notes or talking about guns, knives, or pills. Starts to spend a lot of time alone. Acts very aggressively or suddenly appears calm. Watch closely for changes in your health, and be sure to contact your doctor if: You do not get better as expected. 07/06/2024 OAB (overactive bladder) (ICD-10 - N32.81) 10/06/2024 Overweight (ICD-10 - E66.3) 10/06/2024 Hyperlipidemia, unspecified hyperlipidemia type (ICD-10 - E78.5) Eat a variety of foods every day. Good choices include fruits, vegetables, whole grains (like oatmeal), dried beans and peas, nuts and seeds, soy products (like tofu), and fat-free or low-fat dairy products. *Replace butter, margarine, and hydrogenated or partially hydrogenated oils with olive and canola oils. (Canola oil margarine without trans fat is fine.) *Replace red meat with fish, poultry, and soy protein (like tofu). *Limit processed and packaged foods like chips, crackers, and cookies. *Bake, broil, or steam foods. Don't myers them. *Be physically active. Get at least 30 minutes of exercise on most days of the week. Walking is a good choice. You also may want to do other activities, such as running, swimming, cycling, or playing tennis or team sports. *Stay at a healthy weight or lose weight by making the changes in eating and physical activity listed above. Losing just a small amount of weight, even 5 to 10 pounds, can reduce your risk for having a heart attack or stroke. *Do not smoke. 07/06/2024 Insomnia, unspecified type (ICD-10 - G47.00) What to avoid *Do not have drinks with caffeine, such as coffee or black tea, for 8 hours before bed. *Do not smoke or use other types of tobacco near bedtime. Nicotine is a stimulant and can keep you awake. *Avoid drinking alcohol late in the evening, because it can cause you to wake in the middle of the night. *Do not eat a big meal close to bedtime. If you are hungry, eat a light snack. *Do not drink a lot of water close to bedtime, because the need to urinate may wake you up during the night. *Do not read or watch TV in bed. Use the bed only for sleeping and sexual activity. What to try *Go to bed at the same time every night, and wake up at the same time every morning. Do not take naps during the day. *Keep your bedroom quiet, dark, and cool. *Sleep on a comfortable pillow and mattress. *If watching the clock makes you anxious, turn it facing away from you so you cannot see the time. *If you worry when you lie down, start a worry book. Well before bedtime, write down your worries, and then set the book and your concerns aside. *Try meditation or other relaxation techniques before you go to bed. *If you cannot fall asleep, get up and go to another room until you feel sleepy. Do something relaxing. Repeat your bedtime routine before you go to bed again. *Make your house quiet and calm about an hour before bedtime. Turn down the lights, turn off the TV, log off the computer, and turn down the volume on music. This can help you relax after a busy day. When should you call for help? Watch closely for changes in your health, and be sure to contact your doctor if: *Your efforts to improve your sleep do not work. *Your insomnia gets worse. *You have been feeling down, depressed, or hopeless or have lost interest in things that you usually enjoy. 10/06/2024 OAB (overactive bladder) (ICD-10 - N32.81) History of overactive bladder with urgency, cramping, and low urine volume. Symptoms worsened after stopping overactive bladder medication 3-4 weeks ago. Patient previously responded well to 50 mg dose. - Discussed resuming overactive bladder medication at previous dose. 07/06/2024 Recurrent depression (ICD-10 - F33.9) 10/06/2024 YOSEPH on CPAP (ICD-10 - G47.33) 07/06/2024 Chronic pain syndrome (ICD-10 - G89.4) Declines trial of gabapentin or tramadol. Wants to get hydrocodone from pain management clinic 07/06/2024 Bipolar 2 disorder (ICD-10 - F31.81) 10/06/2024 Acute contact dermatitis (ICD-10 - L25.9) Dermatitis: Care Instructions material was printed, Poison [place], [place], and [place]: Care Instructions material was printed 07/06/2024 Anxiety disorder with panic attacks (ICD-10 - F41.9) 07/06/2024 Dietary counseling (ICD-10 - Z71.3) The following information is provided to help patients understand the role BMI, nutrition, and physical activity play in a patient's overall health. Please review the information available in these links. ADULT BMI: https://www.cdc.go v/healthyweight/as sessing/bmi/adult_ bmi/english_bmi_ca lculator/bmi_calcu lator.html DIETARY GUIDELINES: https://www.dietar yguidelines.gov/si francesca/default/files/ 2020-05/Dietary_Gu idelines_for_Ameri cans-... PHYSICAL ACTIVITIES GUIDELINES: https://www.cdc.go v/healthyweight/ph ysical_activity/in dex.html 07/06/2024 Overweight (ICD-10 - E66.3) 07/06/2024 Encounter for administration of vaccine (ICD-10 - Z23) 07/06/2024 Other Please move wit h your normal chores and activities or exercise vigorously for at least 150 minutes a week. This can be walking, biking, swimming or other sports activities that you enjoy. Also add at least 2 exercise sessions a week for strength and balance training such as weight lifting, resistance bands, martial arts, yoga, deric chi or other exercise to improve your overall health and reduce your future risk of injury. Plan Of Treatment Next Appt Details Provider Name:Elisa ellis, 01/06/2025 09:40:00 AM, [address], [place], [id number], Insurance Providers Payer Name Payer Address Payer Phone Subscriber Number Group Number Insured Name Patient Relationship to Insured Coverage Start Date Coverage End Date [facility] [address] [address] [place], [place] [id number] Eleni Mansfield Self - patient is the insured Medicaid [address] [place], [place] [id number] Eleni Mansfield Self - patient is the insured Medical (General) History Medical History History ICD Code [employer] June 2024 Hypertension hypercholesterolemia GERD, on meds since gastric sleeve in . insomnia OAB, has only been on Myrbetriq bipolar disorder, depression predominant, established with [facility] July 2024 anxiety bladder spasms migraines, last one in 2018. slipped disc, chronic low ba ck. Pt reports long hx of hydrocodone with B radiculopathy since 1979 with a work accident insomnia chronic abd pain after gastr ic sleeve, considering other surgery. Dicyclomine not helpful, d/c perennial allergic rhinitis Surgical History Surgery Date(Month/Year) eye lift 04/23/24 gastric bypass, sleeve 2014 breast reduction 2002 cholecystectomy 1985 B tubal ligation 1983 total hyst 1997 pin to left arm 1998 tonsilectomy removal of pin left arm 1998 Hospitalization History Reason Date(Month/Year) 6 ribs fractured 2004 infection (unknown origin) 2006
--- OUTSIDE RECORDS SUMMARY | 2025-01-02 20:55 | XMS_ITS | Patient Health Record ---
Author Organization [facility] Address [address] [place] [address] Care Team Providers Care Customer Development Manager Name Role Phone Rene Mauro Unavailable [phone] Allergies Allergen (clinical drug ingredient) Drug/Non Drug Allergy documented on EMR Reaction Allergy Type Onset Date Status metformin metFORMIN Unknown Drug Allergy Active Results Component Value Reference Range Flag Notes Urine Drug Screen (cup read) - 48428 Reviewed date:12/09/2024 01:50:09 PM Interpretation: Performing Lab: Notes/Report: OPI + Urine Confirmation Panel (in strument) - [id number] Reviewed date:12/13/2024 10:53:56 PM Interpretation: Performing Lab: Notes/Report: 6-Acetylmorphine 0 <6 ng/mL N This francesca t was developed and its performance characteristics determined by [facility]. It has not been cleared or approved by the U.S. Food and Drug Administration. 7-Aminoclonazepam 0 <60 ng/mL N This te st was developed and its performance characteristics determined by [facility]. It has not been cleared or approved by the U.S. Food and Drug Administration. Alprazolam 0 <60 ng/mL N This test was developed and its performance characteristics determined by [facility]. It has not been cleared or approved by the U.S. Food and Drug Administration. Amphetamine 0 <75 ng/mL N This test was developed and its performance characteristics determined by [facility]. It has not been cleared or approved by the U.S. Food and Drug Administration. aOH-Alprazolam 0 <60 ng/mL N This test was developed and its performance characteristics determined by [facility]. It has not been cleared or approved by the U.S. Food and Drug Administration. Buprenorphine 0.0 <7.5 ng/mL N This test w as developed and its performance characteristics determined by [facility]. It has not been cleared or approved by the U.S. Food and Drug Administration. Norbuprenorphine 0.0 <37.5 ng/mL N This te st was developed and its performance characteristics determined by [facility]. It has not been cleared or approved by the U.S. Food and Drug Administration. Carisoprodol 0 <75 ng/mL N This test wa s developed and its performance characteristics determined by [facility]. It has not been cleared or approved by the U.S. Food and Drug Administration. Codeine 0 <75 ng/mL N This test was developed and its performance characteristics determined by [facility]. It has not been cleared or approved by the U.S. Food and Drug Administration. EDDP 0 <75 ng/mL N This test was developed and its performance characteristics determined by [facility]. It has not been cleared or approved by the U.S. Food and Drug Administration. Fentanyl 0 <6 ng/mL N This test was developed and its performance characteristics determined by [facility]. It has not been cleared or approved by the U.S. Food and Drug Administration. Hydrocodone 700 <75 ng/mL H This test was developed and its performance characteristics determined by [facility]. It has not been cleared or approved by the U.S. Food and Drug Administration. Hydromorphone 0 <75 ng/mL N This test w as developed and its performance characteristics determined by [facility]. It has not been cleared or approved by the U.S. Food and Drug Administration. Lorazepam 0 <60 ng/mL N This test was developed and its performance characteristics determined by [facility]. It has not been cleared or approved by the U.S. Food and Drug Administration. MDMA 0 <75 ng/mL N This test was developed and its performance characteristics determined by [facility]. It has not been cleared or approved by the U.S. Food and Drug Administration. Meperidine 0.0 <37.5 ng/mL N This test was developed and its performance characteristics determined by [facility]. It has not been cleared or approved by the U.S. Food and Drug Administration. Meprobamate 0 <75 ng/mL N This test was developed and its performance characteristics determined by [facility]. It has not been cleared or approved by the U.S. Food and Drug Administration. Methamphetamine 6 <75 ng/mL N This test was developed and its performance characteristics determined by [facility]. It has not been cleared or approved by the U.S. Food and Drug Administration. Methadone 0 <75 ng/mL N This test was developed and its performance characteristics determined by [facility]. It has not been cleared or approved by the U.S. Food and Drug Administration. Morphine 0 <75 ng/mL N This test was developed and its performance characteristics determined by [facility]. It has not been cleared or approved by the U.S. Food and Drug Administration. Nordiazepam 0 <60 ng/mL N This test was developed and its performance characteristics determined by [facility]. It has not been cleared or approved by the U.S. Food and Drug Administration. Norfentanyl 0 <6 ng/mL N This test was developed and its performance characteristics determined by [facility]. It has not been cleared or approved by the U.S. Food and Drug Administration. Normeperidine 0.0 <37.5 ng/mL N This test was developed and its performance characteristics determined by [facility]. It has not been cleared or approved by the U.S. Food and Drug Administration. O-desmethyltramadol 0 <75 ng/mL N This test was developed and its performance characteristics determined by [facility]. It has not been cleared or approved by the U.S. Food and Drug Administration. Oxazepam 0 <60 ng/mL N This test was developed and its performance characteristics determined by [facility]. It has not been cleared or approved by the U.S. Food and Drug Administration. Oxycodone 0.0 <37.5 ng/mL N This test was developed and its performance characteristics determined by [facility]. It has not been cleared or approved by the U.S. Food and Drug Administration. Oxymorphone 0 <75 ng/mL N This test was developed and its performance characteristics determined by [facility]. It has not been cleared or approved by the U.S. Food and Drug Administration. Phencyclidine 0.0 <7.5 ng/mL N This test w as developed and its performance characteristics determined by [facility]. It has not been cleared or approved by the U.S. Food and Drug Administration. Tapentadol 17.4 <37.5 ng/mL N This test was developed and its performance characteristics determined by [facility]. It has not been cleared or approved by the U.S. Food and Drug Administration. Temazepam 0 <60 ng/mL N This test was developed and its performance characteristics determined by [facility]. It has not been cleared or approved by the U.S. Food and Drug Administration. Tramadol 38 <75 ng/mL N This test was developed and its performance characteristics determined by [facility]. It has not been cleared or approved by the U.S. Food and Drug Administration. Norhydrocodone 616 <75 ng/mL H This test was developed and its performance characteristics determined by [facility]. It has not been cleared or approved by the U.S. Food and Drug Administration. Noroxycodone 0 <38 ng/mL N This test wa s developed and its performance characteristics determined by [facility]. It has not been cleared or approved by the U.S. Food and Drug Administration. Pregabalin 0 <225 ng/mL N This test was developed and its performance characteristics determined by [facility]. It has not been cleared or approved by the U.S. Food and Drug Administration. Gabapentin 0 <225 ng/mL N This test was developed and its performance characteristics determined by [facility]. It has not been cleared or approved by the U.S. Food and Drug Administration. Benzoylecgonine 0.0 <37.5 ng/mL N This francesca t was developed and its performance characteristics determined by [facility]. It has not been cleared or approved by the U.S. Food and Drug Administration. 4-Hydroxy Xylazine 0 <25 ng/mL N This t est was developed and its performance characteristics determined by [facility]. It has not been cleared or approved by the U.S. Food and Drug Administration. Tox Results Reviewed date:10/20/2024 12:58:58 PM Interpretation: Performing Lab: Notes/Report: Urine Drug Screen (cup read) - [id number] Reviewed date:08/12/2024 09:58:13 AM Interpretation:all negative Performing Lab: Notes/Report: all negative Urine Confirmation Panel (in strument) - [id number] Reviewed date:08/16/2024 02:37:08 PM Interpretation: Performing Lab: Notes/Report: 6-Acetylmorphine 0 <6 ng/mL N This francesca t was developed and its performance characteristics determined by [facility]. It has not been cleared or approved by the U.S. Food and Drug Administration. 7-Aminoclonazepam 0 <60 ng/mL N This te st was developed and its performance characteristics determined by [facility]. It has not been cleared or approved by the U.S. Food and Drug Administration. Alprazolam 0 <60 ng/mL N This test was developed and its performance characteristics determined by [facility]. It has not been cleared or approved by the U.S. Food and Drug Administration. Amphetamine 0 <75 ng/mL N This test was developed and its performance characteristics determined by [facility]. It has not been cleared or approved by the U.S. Food and Drug Administration. aOH-Alprazolam 0 <60 ng/mL N This test was developed and its performance characteristics determined by [facility]. It has not been cleared or approved by the U.S. Food and Drug Administration. Buprenorphine 0.0 <7.5 ng/mL N This test w as developed and its performance characteristics determined by [facility]. It has not been cleared or approved by the U.S. Food and Drug Administration. Norbuprenorphine 0.0 <37.5 ng/mL N This te st was developed and its performance characteristics determined by [facility]. It has not been cleared or approved by the U.S. Food and Drug Administration. Carisoprodol 0 <75 ng/mL N This test wa s developed and its performance characteristics determined by [facility]. It has not been cleared or approved by the U.S. Food and Drug Administration. Codeine 0 <75 ng/mL N This test was developed and its performance characteristics determined by [facility]. It has not been cleared or approved by the U.S. Food and Drug Administration. EDDP 0 <75 ng/mL N This test was developed and its performance characteristics determined by [facility]. It has not been cleared or approved by the U.S. Food and Drug Administration. Fentanyl 0 <6 ng/mL N This test was developed and its performance characteristics determined by [facility]. It has not been cleared or approved by the U.S. Food and Drug Administration. Hydrocodone 45 <75 ng/mL N This test was developed and its performance characteristics determined by [facility]. It has not been cleared or approved by the U.S. Food and Drug Administration. Hydromorphone 0 <75 ng/mL N This test w as developed and its performance characteristics determined by [facility]. It has not been cleared or approved by the U.S. Food and Drug Administration. Lorazepam 0 <60 ng/mL N This test was developed and its performance characteristics determined by [facility]. It has not been cleared or approved by the U.S. Food and Drug Administration. MDMA 0 <75 ng/mL N This test was developed and its performance characteristics determined by [facility]. It has not been cleared or approved by the U.S. Food and Drug Administration. Meperidine 0.0 <37.5 ng/mL N This test was developed and its performance characteristics determined by [facility]. It has not been cleared or approved by the U.S. Food and Drug Administration. Meprobamate 0 <75 ng/mL N This test was developed and its performance characteristics determined by [facility]. It has not been cleared or approved by the U.S. Food and Drug Administration. Methamphetamine 0 <75 ng/mL N This test was developed and its performance characteristics determined by [facility]. It has not been cleared or approved by the U.S. Food and Drug Administration. Methadone 0 <75 ng/mL N This test was developed and its performance characteristics determined by [facility]. It has not been cleared or approved by the U.S. Food and Drug Administration. Morphine 0 <75 ng/mL N This test was developed and its performance characteristics determined by [facility]. It has not been cleared or approved by the U.S. Food and Drug Administration. Nordiazepam 0 <60 ng/mL N This test was developed and its performance characteristics determined by [facility]. It has not been cleared or approved by the U.S. Food and Drug Administration. Norfentanyl 0 <6 ng/mL N This test was developed and its performance characteristics determined by [facility]. It has not been cleared or approved by the U.S. Food and Drug Administration. Normeperidine 0.0 <37.5 ng/mL N This test was developed and its performance characteristics determined by [facility]. It has not been cleared or approved by the U.S. Food and Drug Administration. O-desmethyltramadol 0 <75 ng/mL N This test was developed and its performance characteristics determined by [facility]. It has not been cleared or approved by the U.S. Food and Drug Administration. Oxazepam 0 <60 ng/mL N This test was developed and its performance characteristics determined by [facility]. It has not been cleared or approved by the U.S. Food and Drug Administration. Oxycodone 0.0 <37.5 ng/mL N This test was developed and its performance characteristics determined by [facility]. It has not been cleared or approved by the U.S. Food and Drug Administration. Oxymorphone 0 <75 ng/mL N This test was developed and its performance characteristics determined by [facility]. It has not been cleared or approved by the U.S. Food and Drug Administration. Phencyclidine 0.0 <7.5 ng/mL N This test w as developed and its performance characteristics determined by [facility]. It has not been cleared or approved by the U.S. Food and Drug Administration. Tapentadol 0.0 <37.5 ng/mL N This test was developed and its performance characteristics determined by [facility]. It has not been cleared or approved by the U.S. Food and Drug Administration. Temazepam 0 <60 ng/mL N This test was developed and its performance characteristics determined by [facility]. It has not been cleared or approved by the U.S. Food and Drug Administration. Tramadol 0 <75 ng/mL N This test was developed and its performance characteristics determined by [facility]. It has not been cleared or approved by the U.S. Food and Drug Administration. Norhydrocodone 0 <75 ng/mL N This test was developed and its performance characteristics determined by [facility]. It has not been cleared or approved by the U.S. Food and Drug Administration. Noroxycodone 0 <38 ng/mL N This test wa s developed and its performance characteristics determined by [facility]. It has not been cleared or approved by the U.S. Food and Drug Administration. Pregabalin 0 <225 ng/mL N This test was developed and its performance characteristics determined by [facility]. It has not been cleared or approved by the U.S. Food and Drug Administration. Gabapentin 0 <225 ng/mL N This test was developed and its performance characteristics determined by [facility]. It has not been cleared or approved by the U.S. Food and Drug Administration. Benzoylecgonine 0.0 <37.5 ng/mL N This francesca t was developed and its performance characteristics determined by [facility]. It has not been cleared or approved by the U.S. Food and Drug Administration. 4-Hydroxy Xylazine 0 <25 ng/mL N This t est was developed and its performance characteristics determined by [facility]. It has not been cleared or approved by the U.S. Food and Drug Administration. Tox Results Reviewed date:12/13/2024 10:53:56 PM Interpretation: Performing Lab: Notes/Report: Tox Results Reviewed date:08/16/2024 02:40:51 PM Interpretation: Performing Lab: Notes/Report: Urine Drug Screen (cup read) - [id number] Reviewed date:10/07/2024 03:14:35 PM Interpretation: Performing Lab: Notes/Report: OPI + Urine Confirmation Panel (in strument) - [id number] Reviewed date:10/20/2024 12:58:58 PM Interpretation: Performing Lab: Notes/Report: 6-Acetylmorphine 0 <6 ng/mL N This francesca t was developed and its performance characteristics determined by [facility]. It has not been cleared or approved by the U.S. Food and Drug Administration. 7-Aminoclonazepam 0 <60 ng/mL N This te st was developed and its performance characteristics determined by [facility]. It has not been cleared or approved by the U.S. Food and Drug Administration. Alprazolam 0 <60 ng/mL N This test was developed and its performance characteristics determined by [facility]. It has not been cleared or approved by the U.S. Food and Drug Administration. Amphetamine 0 <75 ng/mL N This test was developed and its performance characteristics determined by [facility]. It has not been cleared or approved by the U.S. Food and Drug Administration. aOH-Alprazolam 0 <60 ng/mL N This test was developed and its performance characteristics determined by [facility]. It has not been cleared or approved by the U.S. Food and Drug Administration. Buprenorphine 0.0 <7.5 ng/mL N This test w as developed and its performance characteristics determined by [facility]. It has not been cleared or approved by the U.S. Food and Drug Administration. Norbuprenorphine 0.0 <37.5 ng/mL N This te st was developed and its performance characteristics determined by [facility]. It has not been cleared or approved by the U.S. Food and Drug Administration. Carisoprodol 0 <75 ng/mL N This test wa s developed and its performance characteristics determined by [facility]. It has not been cleared or approved by the U.S. Food and Drug Administration. Codeine 0 <75 ng/mL N This test was developed and its performance characteristics determined by [facility]. It has not been cleared or approved by the U.S. Food and Drug Administration. EDDP 0 <75 ng/mL N This test was developed and its performance characteristics determined by [facility]. It has not been cleared or approved by the U.S. Food and Drug Administration. Fentanyl 0 <6 ng/mL N This test was developed and its performance characteristics determined by [facility]. It has not been cleared or approved by the U.S. Food and Drug Administration. Hydrocodone >5000 <75 ng/mL > This test was developed and its performance characteristics determined by [facility]. It has not been cleared or approved by the U.S. Food and Drug Administration. Hydromorphone 152 <75 ng/mL H This test w as developed and its performance characteristics determined by [facility]. It has not been cleared or approved by the U.S. Food and Drug Administration. Lorazepam 0 <60 ng/mL N This test was developed and its performance characteristics determined by [facility]. It has not been cleared or approved by the U.S. Food and Drug Administration. MDMA 0 <75 ng/mL N This test was developed and its performance characteristics determined by [facility]. It has not been cleared or approved by the U.S. Food and Drug Administration. Meperidine 0.0 <37.5 ng/mL N This test was developed and its performance characteristics determined by [facility]. It has not been cleared or approved by the U.S. Food and Drug Administration. Meprobamate 0 <75 ng/mL N This test was developed and its performance characteristics determined by [facility]. It has not been cleared or approved by the U.S. Food and Drug Administration. Methamphetamine 13 <75 ng/mL N This test was developed and its performance characteristics determined by [facility]. It has not been cleared or approved by the U.S. Food and Drug Administration. Methadone 0 <75 ng/mL N This test was developed and its performance characteristics determined by [facility]. It has not been cleared or approved by the U.S. Food and Drug Administration. Morphine 0 <75 ng/mL N This test was developed and its performance characteristics determined by [facility]. It has not been cleared or approved by the U.S. Food and Drug Administration. Nordiazepam 0 <60 ng/mL N This test was developed and its performance characteristics determined by [facility]. It has not been cleared or approved by the U.S. Food and Drug Administration. Norfentanyl 0 <6 ng/mL N This test was developed and its performance characteristics determined by [facility]. It has not been cleared or approved by the U.S. Food and Drug Administration. Normeperidine 0.0 <37.5 ng/mL N This test was developed and its performance characteristics determined by [facility]. It has not been cleared or approved by the U.S. Food and Drug Administration. O-desmethyltramadol 0 <75 ng/mL N This test was developed and its performance characteristics determined by [facility]. It has not been cleared or approved by the U.S. Food and Drug Administration. Oxazepam 0 <60 ng/mL N This test was developed and its performance characteristics determined by [facility]. It has not been cleared or approved by the U.S. Food and Drug Administration. Oxycodone 0.0 <37.5 ng/mL N This test was developed and its performance characteristics determined by [facility]. It has not been cleared or approved by the U.S. Food and Drug Administration. Oxymorphone 0 <75 ng/mL N This test was developed and its performance characteristics determined by [facility]. It has not been cleared or approved by the U.S. Food and Drug Administration. Phencyclidine 0.0 <7.5 ng/mL N This test w as developed and its performance characteristics determined by [facility]. It has not been cleared or approved by the U.S. Food and Drug Administration. Tapentadol 11.0 <37.5 ng/mL N This test was developed and its performance characteristics determined by [facility]. It has not been cleared or approved by the U.S. Food and Drug Administration. Temazepam 0 <60 ng/mL N This test was developed and its performance characteristics determined by [facility]. It has not been cleared or approved by the U.S. Food and Drug Administration. Tramadol 0 <75 ng/mL N This test was developed and its performance characteristics determined by [facility]. It has not been cleared or approved by the U.S. Food and Drug Administration. Norhydrocodone >5000 <75 ng/mL > This test was developed and its performance characteristics determined by [facility]. It has not been cleared or approved by the U.S. Food and Drug Administration. Noroxycodone 0 <38 ng/mL N This test wa s developed and its performance characteristics determined by [facility]. It has not been cleared or approved by the [place]. Food and Drug Administration. Pregabalin 0 <225 ng/mL N This test was developed and its performance characteristics determined by [facility]. It has not been cleared or approved by the U.S. Food and Drug Administration. Gabapentin 1 <225 ng/mL N This test was developed and its performance characteristics determined by [facility]. It has not been cleared or approved by the U.S. Food and Drug Administration. Benzoylecgonine 0.0 <37.5 ng/mL N This francesca t was developed and its performance characteristics determined by [facility]. It has not been cleared or approved by the U.S. Food and Drug Administration. 4-Hydroxy Xylazine 0 <25 ng/mL N This t est was developed and its performance characteristics determined by [facility]. It has not been cleared or approved by the U.S. Food and Drug Administration. Reason For Referral Reason eval and treat Diagnosis 1 Chronic pain syndrom e (G89.4) Referring Provider First Name Elisa Referring Provider Last Name Ziggy Referring Provider Speciality [facility] Referred Organization [facility] Referred Provider Rene Mauro Referred Address [address] [place] [address],[place],[id number], Referred Provider Specialty Pain Medicin e General Notes Geri Mcdermott 07/09 04:05:41 PM >Mailed NPPW Referral Priority Routine Medications Medication SIG (Take, Route, Frequency, Duration) Notes Start Date End Date Status Celecoxib 100 MG Capsule 1 capsule Orally Once a day Not-Taking HYDROcodone-Acetami nophen 10-325 MG Tablet 1 tablet as needed Orally every 8 hours; Duration: 30 days As needed Not to exceed 2 per day Fill 01/16/2025 12/09/2024 02/15/2025 Active HYDROcodone-Acetami nophen 10-325 MG Tablet 1 tablet as needed Orally every 8 hours; Duration: 30 days As needed Not to exceed 2 per day Fill 12/17/2024 12/09/2024 01/16/2025 Active Social History Tobacco Use: Social History Observation Description Date Details (start date - stop date) Never Smoker NA - NA Sex Assigned At : Social History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 return negative will also be sent for quantitative analysis. Any questionable read or any medication we cannot test for in the office confidently will be sent for quantitative analysis, as well. Patient has been made aware of this policy and agrees to abide by our urine testing policy. Patient is a 64 year-old female with past medical history of HTN, GERD, depression, anxiety, bipolar disorder, and chronic pain syndrome, presenting today for scheduled follow up visit after initial referral from Dr. Elisa Trinh to establish care. Patient returns today continuing to complain of chronic low back pain. Pt reports hx of chronic low back pain that has been ongoing for several years. Pt reports she recently move from [place] to [place] to live closer to her son and grandson. Pt reports her pain was previously managed by her PCP in [place] who was reportedly managing her pain with hydrocodone 10-325 mg up to 3 tabs/day with last prescription in 04/2024. Pt returns today reporting no significant improvement after restarting her hydrocodone at a reduced dose of 5-325 mg. We also have yet to receive any medical records from previous pain clinic. Pt reports recently undergoing an MRI of the lumbar within the last year, however, we are still awaiting records from her previous provider. On evaluation today, pt complaining of symptoms that remains most likely multi-factorial in etiology with pain primarily nociceptive somatic with evidence of facetogenic, discogenic, inflammatory, neuropathic, and myofascial elements on exam. Discussed tx options with the pt. Will plan on discontinuing her celecoxib as pt reports hx of gastric sleeve and has been told she is unable to take NSAIDs. In the meantime, we will plan on increasing her hydrocodone to 7.5-325 mg up to 2 tabs/day for breakthrough pain. Extensive discussion with the pt regarding the risks of chronic opioids for non-cancer related pain and that our goal is to taper these medications in the future. All patient questions were addressed and answered. We will plan to follow up with the patient in 8 weeks or sooner as needed. 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 We will monitor with in-office testing (rapid testing) today and review the results prior to dispensing prescription. All positive results will be sent for quantitative analysis to ensure accuracy and quantify amounts. Any expected positive results that return negative will also be sent for quantitative analysis. Any questionable read or any medication we cannot test for in the office confidently will be sent for quantitative analysis, as well. Patient has been made aware of this policy and agrees to abide by our urine testing policy. Patient is a 64-year-old female with past medical history of HTN, GERD, depression, anxiety, bipolar disorder, and chronic pain syndrome, presenting today for scheduled follow-up visit after initial referral from Dr. Elisa Trinh to establish care. Patient returns today continuing to complain of chronic low back pain. Pt reports hx of chronic low back pain that has been ongoing for several years. Pt reports she recently moved from [place] to [place] to live closer to her son-in-law and grandson. Pt reports her pain was previously managed by her PCP in [place] who was reportedly managing her pain with hydrocodone 10-325 mg up to 3 tabs/day with last prescription in 04/2024. Pt returns today reporting that her son-in-law has evicted her. She has since found a place to stay in [place], [place] starting tomorrow. Patients pain is somewhat controlled with hydrocodone 7.5-325 mg which she takes up to two tablets a day, but she reports that it lacks in strength. Unfortunately, we have still yet to receive any medical records from previous pain clinic. Pt reports recently undergoing an MRI of the lumbar within the last year, however, we are still awaiting records from her previous provider. On evaluation today, pt complaining of symptoms that remains most likely multifactorial in etiology with pain primarily nociceptive somatic with evidence of facetogenic, discogenic, inflammatory, neuropathic, and myofascial elements on exam. Discussed tx options with the pt. Will plan on increasing her hydrocodone to 10-325 mg up to 2 tabs/day for breakthrough pain. Of note, patient is unable to take oral NSAIDs given her history of gastric sleeve. All patient questions were addressed and answered. We will plan to follow up with the patient in 8 weeks or sooner as needed. 08/12/2024 Other The patient may be considered for opioid management in order to improve functional status and overall quality of life. This is not first-line therapy, and most other treatment options have failed as above. The patient has been made aware of all clinic policies, compliance policies, the full risks/benefits of opioids, all in writing, as well as signed an opioid agreement which is attached to the chart. Patient is reminded today that a 30-40% overall improvement in chronic pain and functional status is our goal. Patient is a 63 year-old female with past medical history of HTN, GERD, depression, anxiety, bipolar disorder, and chronic pain syndrome, presenting today as referral from Dr. Elisa Trinh to establish care. Patient today is primarily complaining of chronic low back pain and requesting resumption of previous pain medications. Pt reports hx of chronic low back pain that has been ongoing for several years. Pt reports she recently move from [place] to [place] to live closer to her son and grandson. Pt reports her pain was previously managed by her PCP in [place] who was reportedly managing her pain with hydrocodone 10-325 mg up to 3 tabs/day with last prescription in 04/2024. Pt reports she subsequently ran out of the medication in May and has since been using Tylenol to control her pain. Pt reports she had requested previous medical records be sent to our clinic, however, we unfortunately do not have those records at this visit. On evaluation today, pt complaining of symptoms most likely multi-factorial in etiology with pain primarily nociceptive somatic with evidence of facetogenic, discogenic, inflammatory, neuropathic, and myofascial elements on exam. Discussed tx options with the pt. Will plan on starting the pt on a daily anti-inflammatory medication as well as restarting the pt on hydrocodone 5-325 mg up to 2 tabs/day for breakthrough pain. Extensive discussion with the pt regarding the risks of chronic opioids for non-cancer related pain and that our goal is to taper these medications in the future. All patient questions were addressed and answered. We will plan to follow up with the patient in 8 weeks or sooner as needed. 10/07/2024 Other The patient may be considered for opioid management in order to improve functional status and overall quality of life. This is not first-line therapy, and most other treatment options have failed as above. The patient has been made aware of all clinic policies, compliance policies, the full risks/benefits of opioids, all in writing, as well as signed an opioid agreement which is attached to the chart. Patient is reminded today that a 30-40% overall improvement in chronic pain and functional status is our goal. Patient is a 64 year-old female with past medical history of HTN, GERD, depression, anxiety, bipolar disorder, and chronic pain syndrome, presenting today for scheduled follow up visit after initial referral from Dr. Elisa Trinh to establish care. Patient returns today continuing to complain of chronic low back pain. Pt reports hx of chronic low back pain that has been ongoing for several years. Pt reports she recently move from [place] to [place] to live closer to her son and grandson. Pt reports her pain was previously managed by her PCP in [place] who was reportedly managing her pain with hydrocodone 10-325 mg up to 3 tabs/day with last prescription in 04/2024. Pt returns today reporting no significant improvement after restarting her hydrocodone at a reduced dose of 5-325 mg. We also have yet to receive any medical records from previous pain clinic. Pt reports recently undergoing an MRI of the lumbar within the last year, however, we are still awaiting records from her previous provider. On evaluation today, pt complaining of symptoms that remains most likely multi-factorial in etiology with pain primarily nociceptive somatic with evidence of facetogenic, discogenic, inflammatory, neuropathic, and myofascial elements on exam. Discussed tx options with the pt. Will plan on discontinuing her celecoxib as pt reports hx of gastric sleeve and has been told she is unable to take NSAIDs. In the meantime, we will plan on increasing her hydrocodone to 7.5-325 mg up to 2 tabs/day for breakthrough pain. Extensive discussion with the pt regarding the risks of chronic opioids for non-cancer related pain and that our goal is to taper these medications in the future. All patient questions were addressed and answered. We will plan to follow up with the patient in 8 weeks or sooner as needed. 12/09/2024 Other The patient may be considered for opioid management in order to improve functional status and overall quality of life. This is not first-line therapy, and most other treatment options have failed as above. The patient has been made aware of all clinic policies, compliance policies, the full risks/benefits of opioids, all in writing, as well as signed an opioid agreement which is attached to the chart. Patient is reminded today that a 30-40% overall improvement in chronic pain and functional status is our goal. Patient is a 64-year-old female with past medical history of HTN, GERD, depression, anxiety, bipolar disorder, and chronic pain syndrome, presenting today for scheduled follow-up visit after initial referral from Dr. Elisa Trinh to establish care. Patient returns today continuing to complain of chronic low back pain. Pt reports hx of chronic low back pain that has been ongoing for several years. Pt reports she recently moved from [place] to [place] to live closer to her son-in-law and grandson. Pt reports her pain was previously managed by her PCP in [place] who was reportedly managing her pain with hydrocodone 10-325 mg up to 3 tabs/day with last prescription in 04/2024. Pt returns today reporting that her son-in-law has evicted her. She has since found a place to stay in [facility] tomorrow. Patients pain is somewhat controlled with hydrocodone 7.5-325 mg which she takes up to two tablets a day, but she reports that it lacks in strength. Unfortunately, we have still yet to receive any medical records from previous pain clinic. Pt reports recently undergoing an MRI of the lumbar within the last year, however, we are still awaiting records from her previous provider. On evaluation today, pt complaining of symptoms that remains most likely multifactorial in etiology with pain primarily nociceptive somatic with evidence of facetogenic, discogenic, inflammatory, neuropathic, and myofascial elements on exam. Discussed tx options with the pt. Will plan on increasing her hydrocodone to 10-325 mg up to 2 tabs/day for breakthrough pain. Of note, patient is unable to take oral NSAIDs given her history of gastric sleeve. All patient questions were addressed and answered. We will plan to follow up with the patient in 8 weeks or sooner as needed. Plan Of Treatment Next Appt Details Provider Name:Rene Clifford chaney, 02/01/2025 02:20:00 PM, [address] [place], [address], Insurance Providers Payer Name Payer Address Payer Phone Subscriber Number Group Number Insured Name Patient Relationship to Insured Coverage Start Date Coverage End Date [facility] [address] [address] [place] [phone] [id number] Olivia Diaz Self - patient is the insured Medical (General) History Medical History History ICD Code High Blood Pressure Diabetes Stomach Ulcer migraine headaches drug abuse Surgical History Surgery Date(Month/Year) OLIVIA DIAZ 1960
[2025-01-02 21:00] VITALS: BP 155/95; PULSE 75; RESP 18; TEMP 36.6; O2SAT 94; BMI 31.1
[2025-01-02 21:14] VITALS: BP 139/84; PULSE 81; O2SAT 97
--- NOTE | 2025-01-02 21:28 | ED_ITS ---
HPI - Eye Problem 2 General: Chief complaint: Eye Problems Stated complaint: Blood in RT Eye Time Seen by Provider: 01/02/25 21:14 History of Present Illness: Patient stated she started having a red right eye at 4:00 today. This was on the inside of her sclera. It is not affecting her vision. She not having double vision, blurry vision. She states it just got red. She denied any contact to her eye, rubbing it. She is not on any medications. Blood pressure in triage was quite elevated at 155/95. No injury. No trauma. Associated symptoms: Denies fever(s), headache(s), nausea, neck pain or vomiting Related Data Allergies Allergy/AdvReac Type Severity Reaction Status Date / Time latex Allergy ALGY-Bliste Verified 01/02/25 21:05 r metformin Allergy renal Verified 01/02/25 21:05 failure/ gi upset Review of Systems 2 General: Reports: 10 or more systems reviewed and unremarkable except in HPI and below Const: Denies: fever(s) or chills Eyes: Denies: change in vision, blurry vision, blind spots, photophobia, eye discomfort, eye discharge, eye redness (Only to medial sclera), yellow eyes or dry eyes ENMT: Denies: throat pain, nasal discharge, nasal congestion or post nasal drip Card: Denies: chest pain or palpitations Resp: Denies: dyspnea or non-productive cough GI: Denies: abdominal pain, nausea or vomiting : Denies: flank pain, difficulty voiding or dysuria Musc: Denies: neck pain, back pain or extremity pain Skin/Breast: Denies: rash, pruritus, erythema or photosensitivity Neuro: Denies: headache(s), numbness in extremities or weakness in extremities Psych: Denies: anxiety or depression Physical Exam 2 Const: COMMON NORMALS: no acute distress, average body habitus and patient oriented x3 GENERAL APPEARANCE: cooperative HENMT: COMMON NORMALS: normocephalic and atraumatic HEAD & SCALP: n ormocephalic and atraumatic Eye: COMMON NORMALS: Equal, round and reactive pupils present, EOMs intact bilaterally, negative for conjunctivae normal and fundi normal bilaterally G ENERAL EYE: normal light reflex VISUAL ACUITY: Yes acuity normal VISUAL [place]AG[place]: No peripheral vision loss and No central vision loss ALIGNMENT: Yes alignment normal EYELID: eyelids normal CONJUNCTIVA: No conjunctivae normal PUPIL: Yes Equal, round and reactive pupils present DIRECT OPHTHALMOSCOPY: Yes normal light reflex and Yes fundi normal bilaterally EYE IMAGES: 1. Redness Neck/C-Spine: COMMON NORMALS: full ROM and no lymphadenopathy Lymph: LYMPHATIC: no lymphadenopathy noted Chest: COMMONS NORMALS: normal inspection of the chest and normal palpation of entire chest wall Resp: COMMON NORMALS: normal respiratory effort, No retractions and No use of accessory muscles Cardio: COMMON NORMALS: regular rate and regular rhythm RATE: regular rate RHYTHM: regular rhythm GI: COMMON NORMALS: Normal to inspection, nondistended, normoactive bowel sounds present, Soft to palpation, non-tender and No hepatosplenomegaly present PALPATION: Yes Soft to palpation and Yes No hepatosplenomegaly present : COMMON NORMALS: Yes no CVA tenderness BLADDER/KIDNEY EXAM: Yes no CVA tenderness Back/Pelvis: COMMON NORMALS: no CVA tenderness Extremity: COMMON NORMALS: normal to inspection, full ROM and capillary refill normal Neuro: COMMON NORMALS: patient oriented x3, CN's II-XII intact bilaterally and moves all extremities Psych: COMMON NORMALS: mental status grossly normal, Normal thought process present and cooperative THOUGHT PROCESS: Normal thought process present Course 2 Vital Signs: Vital signs: Vital Signs Temperature 97.8 F 01/02/25 21:00 Pulse Rate 76 01/02/25 21:36 Respiratory Rate 18 01/02/25 21:00 Blood Pressure 131/86 01/02/25 21:36 Pulse Oximetry 98 01/02/25 21:36 Oxygen Delivery Me thod Room Air 01/02/25 21:00 MDM - Eye Problem Medical Decision Making Patient is a 64-year-old female with history of untreated hypertension that presents with sudden onset of subconjunctival hemorrhage to the medial portion of her right eye. There is no additional AV nicking, papilledema per ophthalmology examination with anterior evaluation. Discussed with patient she will need an eye evaluation for further discernment, and to call Dr. Harper's office tomorrow for evaluation. Medical Records I reviewed the patient's medical records. All radiology interpretation(s) finalized by discharge Discharge Plan Discharge Patient Disposition: Home Clinical Impression: Subconjunctival hemorrhage Qualifiers: Laterality: right Qualified Code(s): H11.31 - Conjunctival hemorrhage, right eye Condition: Stable Discharge Orders: Discharge ED (Routine); Ordered 01/02/25 Ordered By: Ladan Mcnamara Referrals: [facility] [Outside] - 1-3 days Clinical Impression: Subconjunctival hemorrhage Elisa Trinh MD [Primary Care Provider, [facility]] Discharge Diet: Low Salt Discharge Activity: Resume usual activity Patient Instructions: Subconjunctival Hemorrhage, Patient Portal & Kate Instructions Activity Restrictions/Additional Instructions: - Call Dr. Harper's office in the morning for eye evaluation tomorrow -Return to ED with worsening symptoms, blurry vision, double vision. Thank you for choosing [facility] for your healthcare needs today. You have been screened and evaluated and felt safe for discharge. Health conditions do change or evolve sometimes and as such it is important that you follow up with your Primary Doctor to be re checked, 3-5 days is a general good time frame for follow up. You are always welcome to return to the ED for re assessment if your symptoms are worsening or you have new concerns Print Language: Cape Verdean Coding Level of Care Code ED Machine Engineer for Sorin Wilson
[2025-01-02 21:36] VITALS: BP 131/86; PULSE 76; O2SAT 98
== END 2025-01-02 21:36 | disposition home or self-care (01) ==
PROVIDERS: Emergency Provider Physician Assistant; PCP Family Medicine
DX: H11.31 Conjunctival hemorrhage, right eye (principal)
CPT/HCPCS: 96374; 96375; 99284

== ENCOUNTER 2025-01-18 13:43 | Outpatient (CLI) | payer MEDICARE, MEDICAID, SELFPAY ==
--- NOTE | 2025-01-18 13:48 | MM_ITS ---
WS: [id number] BILATERAL 3D TOMOSYNTHESIS DIGITAL SCREENING MAMMOGRAPHY WITH CAD CLINICAL INFORMATION: SCREENING. Prior breast reduction. HISTORY: Screening mammogram. No current complaints. COMPARISON: None. TECHNIQUE: Bilateral CC and MLO views. FINDINGS: Scattered fibroglandular densities bilaterally. No suspicious focal mass, asymmetry, calcifications, or architectural distortion. No evidence of malignancy. Lucent centered calcification LEFT breast MM/MM scr BI tomosynthesis [id number] IMPRESSION: DENSITY: There are scattered areas of fibroglandular density. BI-RADS: 2 - Benign. FOLLOW UP: 1 Year Follow-up Recommend return to annual screening mammography.
--- NOTE | 2025-01-18 13:48 | XR_ITS ---
WS: [id number] DEXA (DUAL ENERGY X-RAY ABSORPTIOMETRY) Bone mineral density was performed using a [employer] machine. HISTORY: SCREENING COMPARISON: None available. Lumbar spine BMD (L1-L4): 0.913 g/cm2 T score: -2.2 Z score: -1.3 Total hip BMD: Left: 0.679 g/cm2. T score: -2.6 Z score: -1.9 Right: 0.631 g/cm2. T score: -3.0 Z score: -2.3 10 year probability of a major osteoporotic fracture is 21.3%. XR/XR DEXA axial skeleton* [id number] IMPRESSION: OSTEOPOROSIS based upon the WHO classification for females.
== END 2025-01-18 13:44 | disposition home or self-care (01) ==
LOC: RAD 13:45
PROVIDERS: PCP Family Medicine; Visit Provider Family Medicine
DX: Z12.31 Encounter for screening mammogram for malignant neoplasm of breast (principal); Z13.820 Encounter for screening for osteoporosis; Z78.0 Asymptomatic menopausal state; R92.323 Mammographic fibroglandular density, bilateral breasts; R92.1 Mammographic calcification found on diagnostic imaging of breast; M81.0 Age-related osteoporosis without current pathological fracture
CPT/HCPCS: 77063; 77067; 77080